=== PATIENT | female | born 1990 | race Caucasian/White ===

== ENCOUNTER 2016-10-07 09:25 | Emergency (ER) | payer MEDICAID, OTHER ==
[~2016-10-07 09:25] MED LIST: IBUP600 PO; OXYC1SOL5 PO; PERI8.6T PO
[2016-10-07 10:42] LABS: BACTERIA, URINE RARE /hpf; BLOOD, URINE NEG (NEG); GLUCOSE,URINE NEG (NEG); HYALINE CAST, URINE 2 /lpf (RARE); KETONE, URINE NEG (NEG); MUCUS URINE FEW /lpf (OCC); NITRITE,URINE NEG (NEG); PH, URINE 6.5 (5.0-8.5); SQUAMOUS EPITHELIAL CELL URINE 15 /hpf (0-5); URINE COLOR YELLOW (YELLW/STRAW)
[2016-10-07 10:46] LABS: COMMENT (UR) CULT NOT INDICATED; CULTURE IF INDICATED CULT NOT INDICATED
--- NOTE | 2016-10-07 10:47 | PD ---
HPI Chief Complaint Low back pain Date Seen: Oct 07, 2016 Time Seen: 10:20 Travel History International Travel<30 Days: No Contact w/Intl Traveler<30Days: No Known Affected Area: No History of Present Illness HPI Patient is a 26 year old at 31/1 weeks gestation presents to OB ED with complaints of bilateral low back pain which she states has been worsening over the past two weeks. She denies any urinary symptoms, denies fevers. Denies LOF or VB. Denies contractions. Reports +FM. She states she has not taken any prescribed or OTC medications for relief of her pain. She is otherwise without complaints or concerns. Para: 2 : 4 History Past Medical History Narrative Medical GERD Obstetric History Obstetric History 1 prior vaginal delivery at term for which she was induced with a delivery of a baby girl 7 lbs. 8 oz. in October 2012 2nd delivery vaginal term in 2014 One spontaneous AB at 13 weeks without complications in May 2009 Past Surgical History Narrative Surgical Tonsillectomy in childhood Family History Family History: Negative Social History Alcohol Use: No Tobacco Use: Yes (Admits to smoking 1/2 PPD throughout , still currently smoking) Substance Abuse: Yes (Admits to marijuana use in early prior to finding out she was ) Allergies-Medications (Allergen,Severity, Reaction): Coded Allergies: Latex (Unverified Allergy, Mild, 11/09/14) Home Meds Active Scripts Sennosides-Docusate Sodium (Courtney-Colace 8.6-50 mg)1 Tab Tab1 Tab PO Q12H PRN ( CONSTIPATION) #30 TAB Ref 0 Prov:COLEMAN COHEN MD R3 11/07/14 Oxycodone W/ Acetaminophen (Oxycodone/Acetaminophen 5-325 mg/5Ml)1 Tab Tab1 Tab PO Q4H PRN (PAIN SCALE 6 TO 10) #30 TAB Ref 0 Prov:COLEMAN COHEN MD R3 11/07/14 Ibuprofen (Motrin 600 Mg Tab)600 Mg [id number] Mg PO Q6H PRN (PAIN SCALE 1 TO 5) # 90 TAB Ref 0 Prov:COLEMAN COHEN MD R3 11/07/14 Physical Exam Narrative GENERAL: Well-nourished, well-developed patient. SKIN: Warm and dry. HEAD: Normocephalic and atraumatic. EYES: No scleral icterus. No injection or drainage. ENT: No nasal drainage noted. Mucous membranes pink. Airway patent. NECK: Supple, trachea midline. No JVD. CARDIOVASCULAR: Regular rate and rhythm without murmurs, gallops, or rubs. RESPIRATORY: Breath sounds equal bilaterally. No accessory muscle use. ABDOMEN/GI: Abdomen soft, non-tender, bowel sounds present, no rebound, no guarding Gravid to 31 weeks size GENITOURINARY: External Genitalia: intact and normal in appearance Cervix: [-] Dilatation: closed Effacement: [-] Station: [-] Presentation: [-] Membranes: intact Uterine Contractions: none on tocometer FHT's: Category: I Baseline: 140s Reactive: yes Variability: mod Decels: none EXTREMITIES: No cyanosis or edema. BACK: Nontender without obvious deformity. No CVA tenderness. NEUROLOGICAL: Awake and alert. Motor and sensory grossly within normal limits. Normal speech. Data Data Vital Signs Reviewed: Yes Orders Vital Signs (Adult) .ON ADMISSION (10/07/16 10:12) ^ Labor Status (10/07/16 10:12) Urinalysis - C+S If Indicated (10/07/16 10:12) MDM Medical Record Reviewed: Yes Plan Patient is a 26 year old at 31/1 weeks gestation presents to OB ED with complaints of bilateral low back pain. 1. IUP, low back pain - Afebrile, vitals are within normal limits - No CVA tenderness on exam - UA obtained today is clean - Category I tracing, reassuring - No contractions on tocometer - Cervix is closed - Encouraged oral hydration - Advised patient to use Tylenol prn pain - Patient will follow up with Paulina Mayer for routine care dilma Santana Diagnosis Diagnosis: Primary Impression: Intrauterine Additional Impression: Low back pain during Disposition: DISCHARGE HOME Condition: Stable Adolph Merlos MD R1 Oct 07, 2016 10:47
--- NOTE | 2016-10-07 11:31 | PD ---
History of Present Illness Date Seen: Oct 07, 2016 History of Present Illness This patient is a 26-year-old white female 31 weeks followed by Paulina Mayer for care. She presents clinically a low back pain worsening over the last few weeks but is getting a lot worse the last day or 2. Denies contractions bleeding or ruptured membranes baby is active. heart rate tracing is reactive and no contractions noted, there is no CVA tenderness but her low back is tender, urinalysis negative, cannot offer the patient a narcotic injection for pain today she's drove herself here and has no other way home, so she is encouraged to bedrest over the next 1-2 days Tylenol liberally for orally for pain and increase her liquid intake. Also to use a heating pad on low back or hot bath when necessary. Patient seen with the family resource coordinator agree with his assessment and plan Hardik Santana II, MD Oct 07, 2016 11:30
== END 2016-10-07 12:00 | disposition home or self-care (01) ==
LOC: HOBED 09:25
DX: O26.93 Pregnancy related conditions, unspecified, third trimester (principal); F17.210 Nicotine dependence, cigarettes, uncomplicated; Z3A.31 31 weeks gestation of pregnancy
CPT/HCPCS: 81001; 99284

== ENCOUNTER 2016-11-16 17:26 | Emergency (ER) | payer OTHER ==
[2016-11-16] MEDS ORDERED: LACTATED RINGER'S 1000 ML INJ 1,000 ML IV SCH (18:45)
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
[2016-11-16 20:30] LABS: BACTERIA, URINE RARE /hpf; BLOOD, URINE NEG (NEG); GLUCOSE,URINE NEG (NEG); KETONE, URINE NEG (NEG); MUCUS URINE MANY /lpf (OCC); NITRITE,URINE NEG (NEG); PH, URINE 6.5 (5.0-8.5); SQUAMOUS EPITHELIAL CELL URINE 18 /hpf (0-5); URINE COLOR YELLOW (YELLW/STRAW)
[2016-11-16 20:31] LABS: COMMENT (UR) CULT NOT INDICATED; CULTURE IF INDICATED CULT NOT INDICATED
== END 2016-11-16 20:47 | disposition home or self-care (01) ==
LOC: HOBED 17:26
DX: O26.93 Pregnancy related conditions, unspecified, third trimester (principal); O99.333 Smoking (tobacco) complicating pregnancy, third trimester; L55.0 Sunburn of first degree; Z3A.36 36 weeks gestation of pregnancy
CPT/HCPCS: 59025; 81001; 96360; 99284; J7120

== ENCOUNTER 2016-12-01 18:06 | Emergency (ER) | payer OTHER ==
--- NOTE | 2016-12-01 18:40 | PD ---
HPI Chief Complaint Tailbone pain and vaginal bleeding Date Seen: December 01, 2016 Time Seen: 18:34 Travel History International Travel<30 Days: No Contact w/Intl Traveler<30Days: No Known Affected Area: No History of Present Illness HPI 26-year-old who is at 39 weeks' gestation based on an EDC of December 08 comes in with tailbone pain for the past few days, and vaginal spotting that occurred 2 hours ago. Denies abdominal pain or contractions. Patient is group B strep negative and is a patient of Paulina Mayer. Denies any obstetrical complications during this Para: 2 : 4 Miscarriage: 1 History Past Medical History Medical History: Denies Significant Hx Obstetric History Obstetric History Spontaneous vaginal delivery 2, first was 7 lbs. 3 oz. second was 8 lbs. 3 oz. Past Surgical History Narrative Surgical Tonsillectomy Family History Family History: Negative Social History Alcohol Use: No Tobacco Use: Yes Substance Abuse: No Allergies-Medications (Allergen,Severity, Reaction): Coded Allergies: Latex (Unverified Allergy, Mild, 11/09/14) Home Meds Active Scripts Sennosides-Docusate Sodium (Courtney-Colace 8.6-50 mg)1 Tab Tab1 Tab PO Q12H PRN ( CONSTIPATION) #30 TAB Ref 0 Prov:COLEMAN COHEN MD R3 11/07/14 Oxycodone W/ Acetaminophen (Oxycodone/Acetaminophen 5-325 mg/5Ml)1 Tab Tab1 Tab PO Q4H PRN (PAIN SCALE 6 TO 10) #30 TAB Ref 0 Prov:COLEMAN COHEN MD R3 11/07/14 Ibuprofen (Motrin 600 Mg Tab)600 Mg [id number] Mg PO Q6H PRN (PAIN SCALE 1 TO 5) # 90 TAB Ref 0 Prov:COLEMAN COHEN MD R3 11/07/14 Review of Systems Except as stated in HPI: all other systems reviewed are Neg Physical Exam Narrative GENERAL: Well-nourished, well-developed patient. SKIN: Warm and dry. HEAD: Normocephalic and atraumatic. CARDIOVASCULAR: Regular rate and rhythm without murmurs, gallops, or rubs. RESPIRATORY: Breath sounds equal bilaterally. No accessory muscle use. ABDOMEN/GI: Abdomen soft, non-tender, bowel sounds present, no rebound, no guarding Gravid to [39-] weeks size Fundal Height: [-] GENITOURINARY: External Genitalia: intact and normal in appearance BUS glands: [-Normal] Cervix: [Posterior-] Dilatation: [-1 ] Effacement: [0%-] Station: [-High and ballotable] Presentation: [-Vertex] Membranes: [intact ] Uterine Contractions: [Absent-] FHT's: Category: [1-] Baseline: [140-] Reactive: [Moderate-] Variability: [-Moderate] Decels: [Absent-] EXTREMITIES: No cyanosis or edema. BACK: Nontender without obvious deformity. No CVA tenderness. NEUROLOGICAL: Awake and alert. Motor and sensory grossly within normal limits. Five out of 5 muscle strength in all muscle groups. Normal speech. Data Data Vital Signs Reviewed: Yes MDM Plan 26-year-old who is at 39 weeks with lower back pain and vaginal spotting no bleeding noted on exam Patient not in labor Monitoring is reassuring Patient is to follow-up with her obstetrical provider on as scheduled Diagnosis Diagnosis: Primary Impression: Low back pain during in second trimester Additional Impression: 39 weeks gestation of Disposition: DISCHARGE HOME Jenna Durant MD December 01, 2016 18:40
== END 2016-12-01 18:44 | disposition home or self-care (01) ==
LOC: HOBED 18:06
DX: O26.892 Other specified pregnancy related conditions, second trimester (principal); M54.5 Low back pain; Z3A.39 39 weeks gestation of pregnancy; N93.9 Abnormal uterine and vaginal bleeding, unspecified
CPT/HCPCS: 59025

== ENCOUNTER 2016-12-18 06:00 | Inpatient (IN) | payer OTHER ==
[2016-12-18] VITALS (81 sets, daily range): BP systolic 95–137; BP diastolic 52–98; PULSE 70–99; RESP 16–20; TEMP 97.6–97.7
[~2016-12-18] VITALS: Ht 157.5 cm; Wt 98.9 kg
[2016-12-18] MEDS ORDERED: LIDOCAINE HCL 1% 50 ML VIAL I-DERMAL PRN (06:30)
[2016-12-18] MEDS ORDERED: LIDOCAINE HCL 1% 50 ML VIAL INFIL PRN (06:30)
[2016-12-18] MEDS ORDERED: MINERAL OIL 10 ML VIAL TOPICAL PRN (06:30)
[2016-12-18] MEDS ORDERED: CITRIC ACID-SODIUM CITRATE LIQ 30 ML UDC PO SCH (06:30)
[2016-12-18] MEDS ORDERED: ONDANSETRON HCL 4 MG/2 ML VIAL IV PRN (06:30)
[2016-12-18] MEDS ORDERED: OXYTOCIN 30 UNITS 500ML PREMIX IV ONE (06:30)
[2016-12-18] MEDS ORDERED: NS 1000 ML IV PRN (06:30)
[2016-12-18] MEDS ORDERED: LACTATED RINGER'S 1000 ML BOLUS IV PRN (06:30)
[2016-12-18] MEDS ORDERED: NS 500 ML BOLUS IV PRN (06:30)
[2016-12-18 07:07] LABS: AUTOMATED NEUTROPHIL # 5.2 TH/MM3 (1.8-7.7); BASOPHIL % 0.1 % (0.0-2.0); EOSINOPHIL # 0.1 TH/MM3 (0-0.4); EOSINOPHIL % 1.5 % (0.0-4.0); HEMATOCRIT 34.1 % (35.0-46.0); LYMPH % 28.1 % (9.0-44.0); LYMPHOCYTE # 2.3 TH/MM3 (1.0-4.8); MEAN CELL VOLUME 82.9 FL (80.0-100.0); MEAN CORPUSCULAR HEMOGLOBIN 28.9 PG (27.0-34.0); MEAN CORPUSCULAR HGB CONC 34.8 % (32.0-36.0); NEUT % 63.3 % (16.0-70.0); PLATELET COUNT 181 TH/MM3 (150-450); RED BLOOD COUNT 4.12 MIL/MM3 (4.00-5.30); RED CELL DISTRIBUTION WIDTH 15.2 % (11.6-17.2); WHITE BLOOD COUNT 8.3 TH/MM3 (4.0-11.0)
[2016-12-18 07:08] LABS: HEMO FLAGS AUTO DIFF
[2016-12-18] MEDS ORDERED: PREN29TA PO (07:26)
[2016-12-18] MEDS ORDERED: ZANT150T2 PO (07:26)
[2016-12-18 07:34] LABS: BACTERIA, URINE OCC /hpf; BLOOD, URINE NEG (NEG); COMMENT (UR) CULT NOT INDICATED; CULTURE IF INDICATED CULT NOT INDICATED; GLUCOSE,URINE NEG (NEG); KETONE, URINE 10 mg/dL (NEG); MUCUS URINE MANY /lpf (OCC); NITRITE,URINE NEG (NEG); SQUAMOUS EPITHELIAL CELL URINE 37 /hpf (0-5); URINE COLOR YELLOW (YELLW/STRAW)
[2016-12-18 07:53] LABS: BANDS 7 % (0-6); EOSINOPHILS 2 % (0-4); METAMYELOCYTES 1 % (0-1); NEUTROPHIL # MANUAL DIFF 5.9 TH/MM3 (1.8-7.7); POLYS (SEG NEUTROPHILS) 63 % (16-70); WBC DIFF SAMPLE 100
[2016-12-18 07:54] LABS: PLATELET ESTIMATE SMEAR NORMAL (NORMAL); PLATELET MORPHOLOGY NORMAL (NORMAL); SCAN/DIFF FINAL DIFF MANUAL
[2016-12-18] MEDS: LACTATED RINGER'S 1000 ML IV SCH ×2 (08:48→08:54)
[2016-12-18] MEDS ORDERED: FAMOTIDINE 20 MG TAB PO SCH (09:00)
[2016-12-18] MEDS ORDERED: OXYTOCIN 30 UNITS-500ML PREMIX 500 ML IV SCH (09:00)
[2016-12-18] MEDS ORDERED: MULTIVIT/MIN/PREN/FOL AC/IRON PRENATAL TAB PO SCH (09:00)
[2016-12-18] MEDS ORDERED: ePHEDrine/NS 25 MG/5 ML SYR ONE (09:30)
[2016-12-18] MEDS ORDERED: fentaNYL 2MCG-BUPIV 0.125% INJ 100 ML ONE (09:30)
--- NOTE | 2016-12-18 10:24 | PD.LABORPN ---
Subjective Subjective AROM -clear , IUPC /FSE inserted , cx 4/50//-3 vtx FHR reactive , CTXs reg anticipate Objective Vital Signs Vital Signs Date Time Temp Pulse Resp B/P Pulse Ox O2 Delivery O2 Flow Rate FiO2 12/18/16 10:00 81 12/18/16 10:00 81 119/75 12/18/16 09:55 85 12/18/16 09:50 83 12/18/16 09:45 92 12/18/16 09:40 86 12/18/16 09:38 89 127/83 12/18/16 09:35 87 12/18/16 09:30 79 12/18/16 09:25 84 12/18/16 09:20 79 12/18/16 09:19 78 109/69 12/18/16 09:15 82 12/18/16 09:10 86 12/18/16 09:07 78 115/68 12/18/16 09:06 20 12/18/16 09:06 97.7 18 12/18/16 09:05 95 12/18/16 08:15 18 12/18/16 07:15 18 12/18/16 06:30 97.7 18 12/18/16 06:23 94 117/77 Objective Pelvic Exam: Cervix: [-] Dilatation: [4-] Effacement: [50-] Station: [-3] Presentation: [vtx-] Membranes: AROM ruptured] Uterine Contractions: [reg-] FHT's: Category: [1-] Baseline: [144-] Reactive: [-yes] Variability: [-mod] Decels: [-0] Assessment/Plan Assessment and Plan postterm induction Hardik Santana II, MD Dec 18, 2016 10:24
[2016-12-18] MEDS ORDERED: LIDOCAINE 2% JELLY 30 ML TUBE ONE (11:56)
--- NOTE | 2016-12-18 12:14 | HHI.HP ---
HPI Chief Complaint Scheduled induction of labor Date Seen: Dec 18, 2016 Time Seen: 12:00 Travel History International Travel<30 Days: No Contact w/Intl Traveler<30Days: No Known Affected Area: No History of Present Illness HPI Patient is a 26-year-old G3 for P2 at 41 weeks and 3 days who presents for scheduled induction of labor. She reports that her has been complicated thus far. Her last ultrasound was at 28 weeks and was unremarkable. Her estimated date of delivery is based on LMP. She denied any leakage of fluid , vaginal bleeding, contractions prior to presentation. She is endorsing movement. Para: 2 : 4 History Past Medical History Medical History: Denies Significant Hx Obstetric History Obstetric History Patient reports a history of one miscarriage as a teen. She has a 4-year-old and a 2-year-old both of whom are healthy born via vaginal delivery, full-term. One was 7 lbs. 6 oz. The other was 8 lbs. 9 oz. Past Surgical History Narrative Surgical Tonsillectomy and adenoidectomy as a child Family History Narrative Family History Patient reports family history of hypertension in her dad's side and on her mom' s side, diabetes, mental health disorders, asthma, cancer. Social History Narrative Social History Patient reports that she is engaged and lives with her fisilvia and her 2 children. Alcohol Use: No Tobacco Use: Yes (patient reports smoking a half-pack per day to one pack per day) Substance Abuse: No Allergies-Medications (Allergen,Severity, Reaction): Coded Allergies: Latex (Unverified Allergy, Mild, 12/18/16) Fluoride (Verified Allergy, Unknown, Rash, 12/18/16) Home Meds Reported Medications Ranitidine (Zantac)150 Mg [id number] Mg PO TID #60 TAB Ref 0 12/18/16 Vit-Iron Carbonyl ( Plus Iron 29-1 mg)1 Tab Tab1 Tab PO DAILY #30 TAB Ref 0 12/18/16 Discontinued Scripts Sennosides-Docusate Sodium (Courtney-Colace 8.6-50 mg)1 Tab Tab1 Tab PO Q12H PRN ( CONSTIPATION) #30 TAB Ref 0 Prov:COLEMAN COHEN MD R3 11/07/14 Oxycodone W/ Acetaminophen (Oxycodone/Acetaminophen 5-325 mg/5Ml)1 Tab Tab1 Tab PO Q4H PRN (PAIN SCALE 6 TO 10) #30 TAB Ref 0 Prov:COLEMAN COHEN MD R3 11/07/14 Ibuprofen (Motrin 600 Mg Tab)600 Mg [id number] Mg PO Q6H PRN (PAIN SCALE 1 TO 5) # 90 TAB Ref 0 Prov:COLEMAN COHEN MD R3 11/07/14 Review of Systems General / Constitutional: No: Fever, Chills Eyes: No: Blurred Vision, Visual changes HENT: No: Headaches Cardiovascular: No: Chest Pain or Discomfort, Edema Respiratory: No: Short of Breath Gastrointestinal: No: Nausea, Vomiting, Abdominal Pain Genitourinary: No: Dysuria Musculoskeletal: No: Cramping, Edema Neurologic: No: Headache Physical Exam Patient has been afebrile vital signs stable and within normal limits. Vital Signs Date Time Temp Pulse Resp B/P Pulse Ox O2 Delivery O2 Flow Rate FiO2 12/18/16 11:55 72 12/18/16 11:50 77 12/18/16 11:45 80 113/68 12/18/16 11:45 84 12/18/16 11:45 16 12/18/16 11:40 73 12/18/16 11:40 75 115/69 12/18/16 11:35 81 12/18/16 11:35 77 116/71 12/18/16 11:30 75 111/64 12/18/16 11:30 84 12/18/16 11:25 80 12/18/16 11:25 86 117/67 12/18/16 11:20 70 114/70 12/18/16 11:20 75 12/18/16 11:15 79 111/72 12/18/16 11:15 78 12/18/16 11:15 16 12/18/16 11:11 85 123/72 12/18/16 11:10 84 12/18/16 11:05 93 12/18/16 11:05 99 126/83 12/18/16 11:02 83 103/82 12/18/16 11:00 91 12/18/16 10:55 96 137/98 12/18/16 10:55 91 12/18/16 10:50 84 124/97 12/18/16 10:50 95 12/18/16 10:45 80 116/93 12/18/16 10:45 16 12/18/16 10:40 81 112/69 12/18/16 10:40 84 12/18/16 10:39 83 117/69 12/18/16 10:35 77 12/18/16 10:30 78 12/18/16 10:30 79 102/69 12/18/16 10:25 85 12/18/16 10:20 87 12/18/16 10:15 78 12/18/16 10:10 80 12/18/16 10:05 89 12/18/16 10:00 81 12/18/16 10:00 81 119/75 12/18/16 09:55 85 12/18/16 09:50 83 12/18/16 09:45 92 12/18/16 09:40 86 12/18/16 09:38 89 127/83 12/18/16 09:35 87 12/18/16 09:30 79 12/18/16 09:25 84 12/18/16 09:20 79 12/18/16 09:19 78 109/69 12/18/16 09:15 82 12/18/16 09:10 86 12/18/16 09:07 78 115/68 12/18/16 09:06 20 12/18/16 09:06 97.7 18 12/18/16 09:05 95 12/18/16 08:15 18 12/18/16 07:15 18 12/18/16 06:30 97.7 18 12/18/16 06:23 94 117/77 Narrative GENERAL: Well-nourished, well-developed obese female patient. SKIN: Warm and dry. HEAD: Normocephalic and atraumatic. EYES: No scleral icterus. No injection or drainage. ENT: No nasal drainage noted. Mucous membranes pink. Airway patent. NECK: Supple, trachea midline. No JVD. CARDIOVASCULAR: Regular rate and rhythm without murmurs, gallops, or rubs. RESPIRATORY: Breath sounds equal bilaterally. No accessory muscle use. BREASTS: Bilateral exam showed no masses , no retractions, no nipple discharge. ABDOMEN/GI: Abdomen soft, non-tender, bowel sounds present, no rebound, no guarding Gravid to 40 weeks size GENITOURINARY: External Genitalia: intact and normal in appearance Dilatation: 4cm Effacement: 70% Station: -2 Membranes: AROM with clear fluid Uterine Contractions: every 1-2 minutes FHT's: Category: Category 1 Baseline: 135 Reactive: + Variability: Moderate Decels: none EXTREMITIES: No cyanosis or edema. BACK: Nontender without obvious deformity. No CVA tenderness. NEUROLOGICAL: Awake and alert. Motor and sensory grossly within normal limits. Five out of 5 muscle strength in all muscle groups. Normal speech. Data Data Vital Signs Reviewed: Yes Orders Code Status (12/18/16 06:21) Vital Signs (Adult) .Per protocol (12/18/16 06:21) Activity Oob Ad Lo (12/18/16 06:21) Heart (12/18/16 06:21) Amnioinfusion (12/18/16 06:21) Urinary Catheter Management .ONCE (12/18/16 06:21) Diet Npo (12/18/16 Breakfast) Complete Blood Count With Diff (12/18/16 06:21) Hold Clot (12/18/16 06:21) Abo/Rh Blood Type (12/18/16 06:21) Urinalysis - C+S If Indicated (12/18/16 06:21) Resp Oxygen Non Rebreathe Mask (12/18/16 ) ^ Epidural / Intrathecal Infus (12/18/16 06:21) Specimen To Be Collected PRN (12/18/16 06:21) Lactated Ringer's 1000 Ml Inj (Lr 1000 M (12/18/16 06:30) Lactated Ringer's 1000 Ml Inj (Lr 1000 M (12/18/16 06:30) Sodium Chlorid 0.9% 500 Ml Inj (Ns 500 M (12/18/16 06:30) Sodium Chlor 0.9% 1000 Ml Inj (Ns 1000 M (12/18/16 06:30) Lidocaine 1% Inj (50 Ml) (Xylocaine 1% I (12/18/16 06:30) Citric Acid-Sodium Citrate Liq (Bicitra (12/18/16 06:30) Ondansetron Inj (Zofran Inj) (12/18/16 06:30) Fentanyl Inj (Fentanyl Inj) (12/18/16 06:30) Fentanyl Inj (Fentanyl Inj) (12/18/16 06:30) Oxytocin 30 Units-500ml Premix (Pitocin (12/18/16 06:30) Lidocaine 1% Inj (50 Ml) (Xylocaine 1% I (12/18/16 06:30) Light Mineral Oil (Muri-Lube Oil) (12/18/16 06:30) ^ Non Stress Test (12/18/16 08:31) Response To Medication .Post New Med Administration, Reaction (12/18/16 08:31) ^ Discontinue Medication (12/18/16 08:31) Oxytocin 30 Units-500ml Premix (Pitocin (12/18/16 09:00) Fifsjxxp-Rho-Fytgd-Iron Prenat (Stuartna (12/18/16 09:00) Famotidine (Pepcid) (12/18/16 09:00) Fentanyl 2mcg-Bupiv 0.125% Inj (Fentanyl (12/18/16 09:30) Ephedrine/Ns 25 Mg/5 Ml Syr (Ephedrine/N (12/18/16 09:30) Lidocaine 2% Jelly (Xylocaine 2% Jelly) (12/18/16 11:56) Lidocaine 2% Jelly (Xylocaine 2% Jelly) (12/18/16 13:00) Labs Laboratory Tests Test 12/18/16 06:30 White Blood Count 8.3 Red Blood Count 4.12 Hemoglobin 11.9 Hematocrit 34.1 Mean Corpuscular Volume 82.9 Mean Corpuscular Hemoglobin 28.9 Mean Corpuscular Hemoglobin 34.8 Concent Red Cell Distribution Width 15.2 Platelet Count 181 Mean Platelet Volume 8.9 Neutrophils (%) (Auto) 63.3 Lymphocytes (%) (Auto) 28.1 Monocytes (%) (Auto) 7.0 Eosinophils (%) (Auto) 1.5 Basophils (%) (Auto) 0.1 Neutrophils # (Auto) 5.2 Lymphocytes # (Auto) 2.3 Monocytes # (Auto) 0.6 Eosinophils # (Auto) 0.1 Basophils # (Auto) 0.0 CBC Comment AUTO DIFF Differential Total Cells 100 Counted Neutrophils % (Manual) 63 Band Neutrophils % 7 Lymphocytes % 20 Monocytes % 7 Eosinophils % 2 Neutrophils # (Manual) 5.9 Metamyelocytes 1 Differential Comment FINAL DIFF MANUAL Platelet Estimate NORMAL Platelet Morphology Comment NORMAL Red Cell Morphology Comment NORMAL Urine Color YELLOW Urine Turbidity HAZY Urine pH 6.0 Urine Specific [place] 1.030 Urine Protein 30 Urine Glucose (UA) NEG Urine Ketones 10 Urine Occult Blood NEG Urine Nitrite NEG Urine Bilirubin NEG Urine Urobilinogen LESS THAN 2.0 Urine Leukocyte Esterase TRACE Urine RBC 2 Urine WBC 4 Urine Squamous Epithelial 37 Cells Urine Bacteria OCC Urine Mucus MANY Microscopic Urinalysis Comment CULT NOT INDICATED Blood Type O POSITIVE Band and Hold Assessment/Plan Problem List: (1) Intrauterine (2) Indication for care in labor or delivery (3) Indication for care in labor and delivery, antepartum (4) Status post induction of labor Assessment and Plan Patient is a 26-year-old G3 for P2 at 41 weeks and 3 days who presents for scheduled induction of labor. s/p AROM. FSE and IUPC in place. IV Pitocin running. Anticipate . Epidural and Mcgrath catheter UA, ABO/Rh blood type, hold clot, CBC Nothing by mouth Monitor heart rate Monitor maternal vital signs Mineral oil when necessary Pitocin IV Fentanyl for pain Zofran Citric acid-sodium citrate LR IV Home medication of Zantac converted to famotidine/Pepcid 20 g by mouth twice a day for GERD symptoms s/d/w Dr. Santana. Timi Loera MD R1 Dec 18, 2016 12:14
[2016-12-18] MEDS ORDERED: LIDOCAINE 2% JELLY 30 ML TUBE TOPICAL ONE (13:00)
[2016-12-18] MEDS ORDERED: ePHEDrine/NS 25 MG/5 ML SYR IV PRN (13:30)
[2016-12-18] MEDS ORDERED: NO SYSTEM NARCOTICS PRN (13:30)
[2016-12-18] MEDS ORDERED: fentaNYL 2MCG-BUPIV 0.125% 100 ML EPIDURAL SCH (13:30)
[2016-12-18] MEDS ORDERED: DO NOT ADMINISTER ANTICOAGULANTS PRN (13:30)
[2016-12-18] MEDS ORDERED: BUPIVACAINE HCL PF 0.25% 10 ML VIAL ONE (14:16)
--- NOTE | 2016-12-18 15:06 | PD.OB.DELI ---
Delivery Date: Dec 18, 2016 Anesthesia: Epidural Episiotomy: None Vaginal Delivery: Normal Presentation: Occiput anterior Nuchal Cord: None Delayed cord clamping (45 sec): Yes : Female One Minute : 8 Five Minute : 9 Weight: 3170g Placenta: Spontaneous delivery, Intact, 3 vessel cord Laceration: Vaginal laceration (right sided shaneka-urethral repaired with 3-0 running chromic suture), Perineal laceration (1st degree repaired with 3-0 chromic figure eight suture), 1 deg Repair: Chromic running Additional Information Supervised by Dr. Santana. Assisted by Dr. Humberto Guillen. Timi Loera MD R1 Dec 18, 2016 15:05
[2016-12-18] MEDS ORDERED: SODIUM CHLORIDE 0.9% FLUSH 10 ML FLUSH IV FLUSH PRN (15:15)
[2016-12-18] MEDS ORDERED: BENZOCAINE 20% TOPICAL SPRAY 60 ML CAN TOPICAL PRN (15:15)
[2016-12-18] MEDS ORDERED: ACETAMINOPHEN 325 MG TAB PO PRN (15:15)
[2016-12-18] MEDS ORDERED: oxyCODONE/ACETAMINOPHEN 5 MG/325 MG TAB PO PRN (15:15)
[2016-12-18] MEDS ORDERED: DOCUSATE SODIUM 50 MG/SENNA 8.6 MG TAB PO PRN (15:15)
[2016-12-18] MEDS ORDERED: ZOLPIDEM TARTRATE 5 MG TAB PO PRN (15:15)
[2016-12-18] MEDS ORDERED: ONDANSETRON ODT 4 MG TAB PO PRN (15:15)
[2016-12-18] MEDS ORDERED: DIPHTH/TETANUS/ACEL PERTUSSIS (BOOSTER) 0.5 ML VIAL/PFS IM ONE (16:00)
[2016-12-18] MEDS ORDERED: MEASLES, MUMPS, RUBELLA VACCINE 0.5 ML VIAL SQ ONE (16:00)
[2016-12-18] MEDS: IBUPROFEN 600 MG TAB PO PRN (19:00)
[2016-12-18] MEDS: WITCH HAZEL 50%/GLYCERIN 12.5% 40 PAD JAR TOPICAL PRN (19:41)
[2016-12-18] MEDS: oxyCODONE/ACETAMINOPHEN 5 MG/325 MG TAB PO PRN (20:32)
[2016-12-18] MEDS ORDERED: SODIUM CHLORIDE 0.9% FLUSH 10 ML FLUSH IV FLUSH SCH (21:00)
[2016-12-18] MEDS: ALUMINUM/MAGNESIUM/SIMETH 30 ML CUP PO PRN (22:41)
[2016-12-19] MEDS: oxyCODONE/ACETAMINOPHEN 5 MG/325 MG TAB PO PRN ×6 (00:24→20:08)
[2016-12-19] MEDS: IBUPROFEN 600 MG TAB PO PRN ×3 (02:11→15:17)
--- NOTE | 2016-12-19 07:16 | HHI.OB ---
Subjective Post Day: 1 Remarks Pt seen and examined this morning. day # 1 AFVSS overnight. Decreased lochia. Denies dysuria. No breast tenderness. She is feeding the baby via breast. Appetite good. No nausea or vomiting. +flatus. Patient has not yet had a bowel movement. Ambulating well. Denies calf pain or shortness of breath. Otherwise, she is doing well this morning and has no other concerns. Objective Vitals/I&O Vital Signs Date Time Temp Pulse Resp B/P Pulse Ox O2 Delivery O2 Flow Rate FiO2 12/18/16 14:35 83 12/18/16 14:30 87 12/18/16 14:26 80 112/68 12/18/16 14:25 80 12/18/16 14:20 72 114/68 12/18/16 14:20 75 12/18/16 14:15 72 12/18/16 14:15 77 113/69 12/18/16 14:10 92 12/18/16 14:05 84 12/18/16 14:00 75 117/73 12/18/16 14:00 71 12/18/16 13:55 72 12/18/16 13:50 72 12/18/16 13:45 91 117/68 12/18/16 13:45 74 12/18/16 13:40 74 12/18/16 13:35 73 12/18/16 13:32 71 100/62 12/18/16 13:30 75 12/18/16 13:25 80 12/18/16 13:20 78 12/18/16 13:15 78 95/52 12/18/16 13:15 79 12/18/16 13:10 78 12/18/16 13:05 82 12/18/16 13:00 79 12/18/16 13:00 78 97/54 12/18/16 12:58 97.6 18 12/18/16 12:55 78 12/18/16 12:50 79 12/18/16 12:45 81 12/18/16 12:45 89 101/56 12/18/16 12:40 79 12/18/16 12:35 74 12/18/16 12:30 83 110/72 12/18/16 12:30 85 12/18/16 12:25 75 12/18/16 12:20 76 12/18/16 12:15 75 110/60 12/18/16 12:15 84 12/18/16 12:10 85 12/18/16 12:05 82 12/18/16 12:00 73 12/18/16 12:00 75 105/65 12/18/16 11:55 72 12/18/16 11:50 77 12/18/16 11:45 80 113/68 12/18/16 11:45 84 12/18/16 11:45 16 12/18/16 11:40 73 12/18/16 11:40 75 115/69 12/18/16 11:35 81 12/18/16 11:35 77 116/71 12/18/16 11:30 75 111/64 12/18/16 11:30 84 12/18/16 11:25 80 12/18/16 11:25 86 117/67 12/18/16 11:20 70 114/70 12/18/16 11:20 75 12/18/16 11:15 79 111/72 12/18/16 11:15 78 12/18/16 11:15 16 12/18/16 11:11 85 123/72 12/18/16 11:10 84 12/18/16 11:05 93 12/18/16 11:05 99 126/83 12/18/16 11:02 83 103/82 12/18/16 11:00 91 12/18/16 10:55 96 137/98 12/18/16 10:55 91 12/18/16 10:50 84 124/97 12/18/16 10:50 95 12/18/16 10:45 80 116/93 12/18/16 10:45 16 12/18/16 10:40 81 112/69 12/18/16 10:40 84 12/18/16 10:39 83 117/69 12/18/16 10:35 77 12/18/16 10:30 78 12/18/16 10:30 79 102/69 12/18/16 10:25 85 12/18/16 10:20 87 12/18/16 10:15 78 12/18/16 10:10 80 12/18/16 10:05 89 12/18/16 10:00 81 12/18/16 10:00 81 119/75 12/18/16 09:55 85 12/18/16 09:50 83 12/18/16 09:45 92 12/18/16 09:40 86 12/18/16 09:38 89 127/83 12/18/16 09:35 87 12/18/16 09:30 79 12/18/16 09:25 84 12/18/16 09:20 79 12/18/16 09:19 78 109/69 12/18/16 09:15 82 12/18/16 09:10 86 12/18/16 09:07 78 115/68 12/18/16 09:06 20 12/18/16 09:06 97.7 18 12/18/16 09:05 95 12/18/16 08:15 18 12/18/16 07:15 18 Objective Remarks GENERAL: Well-nourished, well-developed patient. CARDIOVASCULAR: Regular rate and rhythm without murmurs, gallops, or rubs. RESPIRATORY: Breath sounds equal bilaterally. No accessory muscle use. ABDOMEN/GI: Abdomen soft, non-tender. Fundus: Firm, non-tender at umbilicus. GENITOURINARY: Light to moderate bleeding. EXTREMITIES: No cyanosis or edema, non-tender, without signs of DVT. Medications and IVs Current Medications Medications (Trade) Dose Ordered Sig/Stephanie Route Start Time Stop Time Status Last Admin (NS Flush) 2 ml BID IV FLUSH 12/18/16 21:00 (NS Flush) 2 ml UNSCH PRN IV FLUSH 12/18/16 15:15 (Tylenol) 650 mg Q4H PRN PO 12/18/16 15:15 12/18/16 19:00 (Motrin) 600 mg Q6H PRN PO 12/18/16 15:15 12/19/16 02:11 (Percocet 5-325 Mg) 1 tab Q4H PRN PO 12/18/16 15:15 (Percocet 5-325 Mg) 2 tab Q4H PRN PO 12/18/16 15:15 12/19/16 05:08 (Americaine 20% Top Spr) 1 spray Q4H PRN TOPICAL 12/18/16 15:15 12/18/16 19:41 (Tucks Pads) 1 applic QID PRN TOPICAL 12/18/16 15:15 12/18/16 19:41 (Courtney-Colace) 2 tab Q12H PRN PO 12/18/16 15:15 (Ambien) 5 mg HS PRN PO 12/18/16 15:15 (Mag-Al Plus Susp Liq) 15 ml Q8H PRN PO 12/18/16 15:15 12/18/16 22:41 (Zofran Odt) 4 mg Q6H PRN PO 12/18/16 15:15 Assessment/Plan Problem List: (1) Intrauterine (2) Indication for care in labor or delivery (3) Indication for care in labor and delivery, antepartum (4) Status post induction of labor Assessment and Plan 26 y/o female who is PPD# 1 s/p . -Continue routine care. -Percocet and Motrin PRN pain. -Encouraged OOB. Advised pelvic rest for 6 wks. -Re: ctrl, she would like to have a tubal ligation, she is interested in being discharged on Micronor. -Anticipate discharge tomorrow. [email or web address] Dr. Max MD . Geri Guillen MD R2 Dec 19, 2016 07:16
[2016-12-19] MEDS: ALUMINUM/MAGNESIUM/SIMETH 30 ML CUP PO PRN (10:46)
[2016-12-19 20:00] VITALS: BP 117/78; PULSE 86; RESP 18; TEMP 98.4; O2SAT 99
[2016-12-20] MEDS: oxyCODONE/ACETAMINOPHEN 5 MG/325 MG TAB PO PRN ×3 (00:02→08:50)
[2016-12-20] MEDS: IBUPROFEN 600 MG TAB PO PRN ×2 (03:21→08:50)
[2016-12-20] MEDS: WITCH HAZEL 50%/GLYCERIN 12.5% 40 PAD JAR TOPICAL PRN (08:54)
--- NOTE | 2016-12-20 10:30 | HHI.OB ---
Subjective Post Day: 2 Remarks 26 year old female s/p at 41/3 wks gestation, PPD 2. AFVSS. Patient reports she is feeling well. Bleeding is decreasing and pain is well- controlled. She is bonding well with baby. Ambulating without difficulties. She is tolerating a diet without nausea or vomiting. Denies chest pain, dysuria , shortness of breath, or calf pain. (Nadira Bahena MD R2) Objective Vitals/I&O Vital Signs Date Time Temp Pulse Resp B/P Pulse Ox O2 Delivery O2 Flow Rate FiO2 12/19/16 20:00 18 99 12/19/16 20:00 98.4 12/19/16 20:00 86 117/78 Objective Remarks GENERAL: Well-nourished, well-developed patient. CARDIOVASCULAR: Regular rate and rhythm without murmurs, gallops, or rubs. RESPIRATORY: Breath sounds equal bilaterally. No accessory muscle use. ABDOMEN/GI: Abdomen soft, non-tender. Fundus: Firm, non-tender at umbilicus. GENITOURINARY: Light to moderate bleeding. EXTREMITIES: No cyanosis or edema, non-tender, without signs of DVT. Medications and IVs Current Medications Medications (Trade) Dose Ordered Sig/Stephanie Route Start Time Stop Time Status Last Admin (NS Flush) 2 ml BID IV FLUSH 12/18/16 21:00 (NS Flush) 2 ml UNSCH PRN IV FLUSH 12/18/16 15:15 (Tylenol) 650 mg Q4H PRN PO 12/18/16 15:15 12/18/16 19:00 (Motrin) 600 mg Q6H PRN PO 12/18/16 15:15 12/20/16 08:50 (Percocet 5-325 Mg) 1 tab Q4H PRN PO 12/18/16 15:15 (Percocet 5-325 Mg) 2 tab Q4H PRN PO 12/18/16 15:15 12/20/16 08:50 (Americaine 20% Top Spr) 1 spray Q4H PRN TOPICAL 12/18/16 15:15 12/18/16 19:41 (Tucks Pads) 1 applic QID PRN TOPICAL 12/18/16 15:15 12/20/16 08:54 (Courtney-Colace) 2 tab Q12H PRN PO 12/18/16 15:15 12/19/16 20:08 (Ambien) 5 mg HS PRN PO 12/18/16 15:15 (Mag-Al Plus Susp Liq) 15 ml Q8H PRN PO 12/18/16 15:15 12/19/16 10:46 (Zofran Odt) 4 mg Q6H PRN PO 12/18/16 15:15 (Nadira Bahena MD R2) Assessment/Plan Problem List: (1) Intrauterine (2) Indication for care in labor or delivery (3) Indication for care in labor and delivery, antepartum (4) Status post induction of labor Assessment and Plan 26 y/o female who is PPD# 2 s/p . -Continue routine care. -Percocet and Motrin PRN pain. -Encouraged OOB. Advised pelvic rest for 6 wks. -Re: ctrl, she would like to have a tubal ligation but is open to have Depo-Provera today until tubal ligation is set up -Anticipate discharge today. sdw Dr. Jackson (Nadira Bahena MD R2) Attending Attestation POD#2 s/p Doing well D/c home today Patient seen and examined with Dr. Bahena (Amparo Jackson MD) Nadira Bahena MD R2 Dec 20, 2016 10:30 Amparo Jackson MD Dec 25, 2016 09:43
[2016-12-20] MEDS ORDERED: IBUP-232 PO (10:31)
--- NOTE | 2016-12-20 10:33 | HHI.DCPOC ---
Discharge Care Plan Diagnosis: (1) Term delivered vaginally, current hospitalization (2) (spontaneous vaginal delivery) Report Symptoms to Your Doctor -Temperature above 100.5 degrees -Redness, of incision or excessive or foul smelling drainage -Unusual pain or calf pain -Increased vaginal bleeding -Painful or difficulty urinating -Feelings of extreme sadness or anxiety after 2 weeks Goals to Promote Your Health * To prevent worsening of your condition and complications * To maintain your health at the optimal level Directions to Meet Your Goals Take your medications as prescribed Follow your dietary instruction Follow activity as directed Ensure plenty of rest for recovery Drink fluids for hydration Keep your appointments as scheduled Take your immunizations and boosters as scheduled If your symptoms worsen call your PCP, if no PCP go to Urgent Care Center or Emergency Room Smoking is Dangerous to Your Health. Avoid second hand smoke Call the 24-hour crisis hotline for domestic abuse at Nadira Bahena MD R2 Dec 20, 2016 10:33 Amparo Jackson MD Dec 25, 2016 09:42
[2016-12-20] MEDS ORDERED: medroxyPROGESTERone ACETATE SUSP 150 MG/ML SYRINGE IM ONE (11:00)
== END 2016-12-20 13:38 | disposition home or self-care (01) | DRG 775 ==
LOC: H2EB 06:00 → H1EA 18:01
PROVIDERS: ADMIT Obstetrics & Gynecology; ATTEND Obstetrics & Gynecology
PROC: 10E0XZZ Delivery of Products of Conception, External Approach (ICD-10-PCS; principal; 2016-12-18)
PROC: 0HQ9XZZ Repair Perineum Skin, External Approach (ICD-10-PCS; 2016-12-18)
PROC: 00HU33Z Insertion of Infusion Device into Spinal Canal, Percutaneous Approach (ICD-10-PCS; 2016-12-18)
PROC: 3E0R3CZ (ICD-10-PCS; 2016-12-18)
DX: O48.0 Post-term pregnancy (principal); F17.210 Nicotine dependence, cigarettes, uncomplicated; Z37.0 Single live birth; O99.334 Smoking (tobacco) complicating childbirth; O70.0 First degree perineal laceration during delivery; Z3A.41 41 weeks gestation of pregnancy
CPT/HCPCS: 59025; 81001; 85007; 85027; 86900; 86901; 90715; J1050; J2590; J3010; J7120

== ENCOUNTER 2016-12-26 18:16 | Emergency (ER) | payer OTHER ==
[~2016-12-26] VITALS: Ht 157.5 cm; Wt 95.0 kg
[~2016-12-26 18:16] MED LIST changes: +IBUP-232 PO; -IBUP600 PO; -OXYC1SOL5 PO; -PERI8.6T PO; +PREN29TA PO; +ZANT150T2 PO
[2016-12-26 18:18] VITALS: BP 136/90; PULSE 98; RESP 24; TEMP 97.8; O2SAT 98
[2016-12-26] MEDS ORDERED: KETOROLAC TROMETHAMINE 30 MG/ML (IVP) VIAL IV PUSH ONE (18:45)
--- NOTE | 2016-12-26 18:48 | PD ---
HPI Chief Complaint: Abdominal Pain Time Seen by Provider: 18:26 Travel History International Travel<30 days: No Contact w/Intl Traveler<30days: No Traveled to known affect area: No History of Present Illness HPI 36-year-old female complains of abdominal cramping and passing clots vaginally. Patient status post vaginal delivery 8 days ago. Patient is breast-feeding. Patient states that she has mild vaginal bleeding since delivery. Patient states that she has increasing low abdominal pelvic pain and passing a large blood clot this afternoon. Patient denies any headache. Patient denies any chest pain or shortness of breath. Patient denies any nausea vomiting diarrhea. Patient denies any dysuria frequency. Patient denies any back pain. On a scale of 1-10 the pain is a 9. PFSH Past Medical History Anxiety: Yes Tetanus Vaccination: > 5 Years Influenza Vaccination: Yes ?: Not : 3 Para: 4 Miscarriage: 1 Past Surgical History Tonsillectomy: Yes Social History Alcohol Use: No Tobacco Use: Yes Substance Use: No Allergies-Medications (Allergen,Severity, Reaction): Coded Allergies: Latex (Unverified Allergy, Mild, 12/18/16) Fluoride (Verified Allergy, Unknown, Rash, 12/18/16) Reported Meds & Prescriptions Reported Meds & Active Scripts Active Lortab (Hydrocodone-Acetaminophen) 5-325 Mg Tab 1 Tab PO Q6H PRN Review of Systems General / Constitutional: No: Fever Eyes: No: Visual changes HENT: No: Headaches Cardiovascular: No: Chest Pain or Discomfort Respiratory: No: Shortness of Breath Gastrointestinal: Positive: Abdominal Pain Genitourinary: Positive: Vaginal Bleeding, No: Dysuria Musculoskeletal: No: Pain Skin: No Rash Neurologic: No: Weakness Psychiatric: No: Depression Endocrine: No: Polydipsia Hematologic/Lymphatic: No: Easy Bruising Physical Exam Narrative GENERAL: Well-nourished, well-developed patient. SKIN: Focused skin assessment warm/dry. HEAD: Normocephalic. EYES: No scleral icterus. No injection or drainage. NECK: Supple, trachea midline. No JVD or lymphadenopathy. CARDIOVASCULAR: Regular rate and rhythm without murmurs, gallops, or rubs. RESPIRATORY: Breath sounds equal bilaterally. No accessory muscle use. GASTROINTESTINAL: Abdomen soft, non-tender, nondistended. MUSCULOSKELETAL: No cyanosis, or edema. BACK: Nontender without obvious deformity. No CVA tenderness. [employer] exam: The cervix long thick and closed. Patient has moderate amount of blood in the vaginal. Uterus is enlarged with moderate tenderness on palpation. No adnexal mass or tenderness. Data Data Last Documented VS Vital Signs Date Time Temp Pulse Resp B/P Pulse Ox O2 Delivery O2 Flow Rate FiO2 12/26/16 18:18 97.8 98 24 136/90 98 Room Air Orders Complete Blood Count With Diff (12/26/16 18:34) Basic Metabolic Panel (Bmp) (12/26/16 18:34) Urinalysis - C+S If Indicated (12/26/16 18:34) Iv Access Insert/Monitor (12/26/16 18:34) Ketorolac Inj (Toradol Inj) (12/26/16 18:45) Urine Culture (12/26/16 19:16) Labs Laboratory Tests Test 12/26/16 12/26/16 18:38 19:16 White Blood Count 12.9 TH/MM3 Red Blood Count 4.81 MIL/MM3 Hemoglobin 13.5 GM/DL Hematocrit 40.8 % Mean Corpuscular Volume 84.8 FL Mean Corpuscular Hemoglobin 28.0 PG Mean Corpuscular Hemoglobin 33.0 % Concent Red Cell Distribution Width 15.3 % Platelet Count 297 TH/MM3 Mean Platelet Volume 8.1 FL Neutrophils (%) (Auto) 76.4 % Lymphocytes (%) (Auto) 16.6 % Monocytes (%) (Auto) 5.0 % Eosinophils (%) (Auto) 1.7 % Basophils (%) (Auto) 0.3 % Neutrophils # (Auto) 9.9 TH/MM3 Lymphocytes # (Auto) 2.1 TH/MM3 Monocytes # (Auto) 0.6 TH/MM3 Eosinophils # (Auto) 0.2 TH/MM3 Basophils # (Auto) 0.0 TH/MM3 CBC Comment DIFF FINAL Differential Comment Sodium Level 139 MEQ/L Potassium Level 3.8 MEQ/L Chloride Level 107 MEQ/L Carbon Dioxide Level 20.1 MEQ/L Anion Gap 12 MEQ/L Blood Urea Nitrogen 17 MG/DL Creatinine 0.86 MG/DL Estimat Glomerular Filtration 81 ML/MIN Rate Random Glucose 111 MG/DL Calcium Level 9.1 MG/DL Urine Color YELLOW Urine Turbidity HAZY Urine pH 5.5 Urine Specific Mcleod 1.023 Urine Protein TRACE mg/dL Urine Glucose (UA) NEG mg/dL Urine Ketones NEG mg/dL Urine Occult Blood LARGE Urine Nitrite NEG Urine Bilirubin NEG Urine Urobilinogen LESS THAN 2.0 MG/DL Urine Leukocyte Esterase LARGE Urine RBC /hpf Urine WBC 27 /hpf Urine Squamous Epithelial 1 /hpf Cells Urine Bacteria OCC /hpf Urine Mucus MOD /lpf Microscopic Urinalysis Comment CULTURE INDICATED MDM Medical Decision Making Medical Screen Exam Complete: Yes Emergency Medical Condition: Yes Interpretation(s) 7:43 PM. CBC WBC 12.9. 76 neutrophil. BMP within normal limit. Bicarbonate 20.1. Differential Diagnosis Differential diagnosis including vaginal bleeding postdelivery, pelvic pain, cervicitis, endometritis, dysmenorrhea. Narrative Course 36-year-old female with low abdominal pain, passing blood clots. Status post vaginal delivery 8 days ago. Toradol 30 mg IV. I spoke with ED OB on-call. Advised pain medication and follow with OB. Diagnosis Primary Impression: pain Patient Instructions: General Instructions Additional Instructions: Take medications as needed for pain. Follow-up with [facility]. Return if persistent problem or worse. Med/Other Pt SpecificInfo: Prescription(s) given Scripts Ibuprofen 600 Mg [id number] Mg PO Q8HR PRN (PAIN) #60 TAB Ref 0 Prov:Jonatan South MD 12/26/16 Hydrocodone-Acetaminophen ([place])5-325 mg Tab1 Tab PO Q6H PRN (PAIN) #30 TAB Prov:Jonatan South MD 12/26/16 Hydrocodone-Acetaminophen (Lortab)5-325 Mg Tab1 Tab PO Q6H PRN (PAIN) #30 TAB Ref 0 Prov:Jonatan South MD 12/26/16 Disposition: 01 DISCHARGE HOME Condition: Stable Jonatan South MD Dec 26, 2016 18:48
[2016-12-26 18:52] LABS: AUTOMATED NEUTROPHIL # 9.9 TH/MM3 (1.8-7.7); BASOPHIL % 0.3 % (0.0-2.0); EOSINOPHIL # 0.2 TH/MM3 (0-0.4); EOSINOPHIL % 1.7 % (0.0-4.0); HEMATOCRIT 40.8 % (35.0-46.0); HEMO FLAGS DIFF FINAL; LYMPH % 16.6 % (9.0-44.0); LYMPHOCYTE # 2.1 TH/MM3 (1.0-4.8); MEAN CELL VOLUME 84.8 FL (80.0-100.0); NEUT % 76.4 % (16.0-70.0); PLATELET COUNT 297 TH/MM3 (150-450); RED BLOOD COUNT 4.81 MIL/MM3 (4.00-5.30); RED CELL DISTRIBUTION WIDTH 15.3 % (11.6-17.2); WHITE BLOOD COUNT 12.9 TH/MM3 (4.0-11.0)
[2016-12-26 19:11] LABS: BICARBONATE 20.1 MEQ/L (21.0-32.0); POTASSIUM 3.8 MEQ/L (3.5-5.1)
[2016-12-26 19:47] LABS: BACTERIA, URINE OCC /hpf; BLOOD, URINE LARGE (NEG); GLUCOSE,URINE NEG (NEG); KETONE, URINE NEG (NEG); MUCUS URINE MOD /lpf (OCC); NITRITE,URINE NEG (NEG); PH, URINE 5.5 (5.0-8.5); SQUAMOUS EPITHELIAL CELL URINE 1 /hpf (0-5); URINE COLOR YELLOW (YELLW/STRAW)
[2016-12-26 19:49] LABS: COMMENT (UR) CULTURE INDICATED; CULTURE IF INDICATED CULTURE INDICATED
[2016-12-26] MEDS ORDERED: HYDR-3533 PO (19:53)
[2016-12-26] MEDS ORDERED: IBUP-232 PO (19:55)
[2016-12-26] MEDS ORDERED: NORC5TAB PO (19:55)
[2016-12-26] MEDS ORDERED: ACETAMINOPHEN/HYDROcodone 325 MG/5 MG TAB PO ONE (20:00)
== END 2016-12-26 20:18 | disposition home or self-care (01) ==
LOC: NEPD 18:16
DX: O90.89 Other complications of the puerperium, not elsewhere classified (principal); N93.9 Abnormal uterine and vaginal bleeding, unspecified; R10.2 Pelvic and perineal pain; Z72.0 Tobacco use
CPT/HCPCS: 80048; 81001; 85025; 87086; 96374; 99284; J1885